=== PATIENT | male | born 1985 | race Hispanic/Latino ===

== ENCOUNTER 2017-08-23 17:44 | Emergency (ER) | payer BC ==
[2017-08-23] MEDS ORDERED: Dexamethasone 4 mg/ml Vial ONE (19:29)
== END 2017-08-23 19:38 | disposition home or self-care (01) ==
LOC: ERS 17:44
DX: J02.9 Acute pharyngitis, unspecified (principal); I10 Essential (primary) hypertension; F32.9 Major depressive disorder, single episode, unspecified
CPT/HCPCS: 87081; 87430; 99283; J1100

== ENCOUNTER 2018-08-18 08:24 | Emergency (ER) | payer BC, SELFPAY ==
[2018-08-18 09:02] LABS: Bilirubin Negative (Negative); Blood, Urine Negative (Negative); Clarity CLEAR (Clear); Glucose, Urine (Dipstick) Negative (Negative); Leukocyte Negative (Negative); Nitrite Negative (Negative); Protein, Urine (Dipstick) Negative (Neg-Trace); Specific Gravity, Urine 1.003 (1.002-1.036); Urobilinogen 0.2 mg/dL (0.2-1.0)
[2018-08-19 22:51] LABS: Chlamydia by PCR Not Detected (NotDetected); GC by PCR Not Detected (NotDetected)
== END 2018-08-18 09:30 | disposition home or self-care (01) ==
LOC: ERS 08:24
DX: R30.0 Dysuria (principal); F32.9 Major depressive disorder, single episode, unspecified; I10 Essential (primary) hypertension; Z79.899 Other long term (current) drug therapy
CPT/HCPCS: 81003; 87491; 87591; 99283

== ENCOUNTER 2018-08-31 11:27 | Emergency (ER) | payer SELFPAY ==
[2018-08-31] MEDS ORDERED: Albuterol Sulfate 2.5 mg/0.5 ml Neb ONE (12:01)
[2018-08-31] MEDS ORDERED: Sodium Chloride For Inhalation 0.9% 3 ML NEB ONE (12:07)
[2018-08-31 12:16] LABS: Bilirubin Negative (Negative); Blood, Urine Negative (Negative); Clarity Clear (Clear); Glucose, Urine (Dipstick) Negative (Negative); Leukocyte Negative (Negative); Nitrite Negative (Negative); Protein, Urine (Dipstick) Negative (Neg-Trace); Urobilinogen 0.2 mg/dL (0.2-1.0); pH, Urine 6.5 (5.0-9.0)
--- NOTE | 2018-08-31 13:56 | ULT ---
TESTICULAR ULTRASOUND: HISTORY: Left shoulder pain, x 1 week. COMPARISON: None. TECHNIQUE: Sagittal and transverse imaging in the left and right testicles is performed. FINDINGS: The right testicle has a homogeneous echotexture. No intratesticular masses. The right testicle kristan sures 2.6 x 3.8 x 1.5 cm. Right epididymis has a normal echotexture measuring 1.0 x 0.7 cm. No sign ificant fluid in the right hemiscrotum. The left testicle has a homogeneous echotexture. No testicular masses. The left testicle measures 3 .5 x 2.5 x 1.9 cm. The left epididymis has a normal appearance measuring 0.6 x 0.9 cm. There is frances dence of vascularity in the left groin which did not increase upon Valsalva. TESTICULAR DOPPLER: There is vascular flow to both testicles. Incidental few scattered echogenic foci in the left and right testicles likely represent small calcif ications. IMPRESSION: 1. Symmetric vascular flow to the testicles. 2. There is vascularity in the left groin in the region of the patient's pain. Nevertheless, no inc reased flow upon Valsalva to suggest varicocele. POS: [facility]
== END 2018-08-31 14:07 | disposition home or self-care (01) ==
LOC: SCSER 11:27
DX: J20.9 Acute bronchitis, unspecified (principal); I86.1 Scrotal varices; I10 Essential (primary) hypertension; F32.9 Major depressive disorder, single episode, unspecified
CPT/HCPCS: 76870; 81003; 93976; 94640; J7611

== ENCOUNTER 2020-12-11 16:54 | Emergency (ER) | payer BC, SELFPAY ==
[2020-12-12 02:32] LABS: SARS-CoV-2 PCR by NAA Not Detected (NotDetected)
== END 2020-12-11 17:33 | disposition home or self-care (01) ==
LOC: ERS 16:54
DX: R06.02 Shortness of breath (principal); Z20.822 Contact with and (suspected) exposure to COVID-19; I10 Essential (primary) hypertension
CPT/HCPCS: 87635; 99284; U0003; U0005

== ENCOUNTER 2021-06-13 20:21 | Emergency (ER) | payer BC ==
[2021-06-13] MEDS ORDERED: Dexamethasone 10 MG/ML VIAL ONE (21:52)
== END 2021-06-13 22:07 | disposition home or self-care (01) ==
LOC: ERS 20:21
DX: J02.9 Acute pharyngitis, unspecified (principal); I10 Essential (primary) hypertension
CPT/HCPCS: 87081; 87430; 99282; J1100

== ENCOUNTER 2022-06-13 15:45 | Emergency (ER) | payer BC ==
[2022-06-13] MEDS ORDERED: Acetaminophen 500 MG TAB ONE (18:55)
[2022-06-13] MEDS ORDERED: Proparacaine 0.5% Opth 15 ML BOT ONE (20:22)
[2022-06-13] MEDS ORDERED: Fluorescein Opthalmic Strip ONE (20:22)
== END 2022-06-13 20:10 | disposition home or self-care (01) ==
LOC: ERS 15:45
DX: U07.1 COVID-19 (principal); J03.90 Acute tonsillitis, unspecified; I10 Essential (primary) hypertension
CPT/HCPCS: 87081; 87430; 87804; 99283; U0003; U0005

== ENCOUNTER 2022-12-23 15:15 | Emergency (ER) | payer BC ==
[2022-12-23] MEDS ORDERED: Acetaminophen 500 MG TAB ONE (15:42)
[2022-12-23] MEDS ORDERED: Ketorolac Tromethamine 30 MG/ML VIAL ONE (15:48)
== END 2022-12-23 17:11 | disposition home or self-care (01) ==
LOC: ERS 15:15
DX: B34.9 Viral infection, unspecified (principal); I10 Essential (primary) hypertension; Z79.899 Other long term (current) drug therapy; Z20.822 Contact with and (suspected) exposure to COVID-19
CPT/HCPCS: 87081; 87430; 87804; 96372; 99284; J1885; U0003; U0005

== ENCOUNTER 2023-04-18 17:30 | Outpatient (CLI) | payer BC | END 2023-04-18 17:31 | disposition home or self-care (01) | LOC: SLEEPLAB 17:30 | PROVIDERS: ATTEND Family Medicine | DX: G47.33 Obstructive sleep apnea (adult) (pediatric) (principal); R53.83 Other fatigue; R09.89 Other specified symptoms and signs involving the circulatory and respiratory systems; E66.9 Obesity, unspecified; R06.83 Snoring | CPT/HCPCS: 95800 ==